=== PATIENT | female | born 1980 | race Hispanic/Latino ===

== ENCOUNTER 2021-07-09 06:57 | Emergency (ER) | payer SELFPAY ==
[~2021-07-09] VITALS: Ht 154.9 cm; Wt 88.0 kg
[2021-07-09 07:12] VITALS: BP 136/86
[2021-07-09] MEDS ORDERED: HYDR25CA PO (07:39)
[2021-07-09] MEDS ORDERED: LORAZEPAM 1 MG TABLET PO ONE (08:00)
== END 2021-07-09 08:01 | disposition home or self-care (01) ==
LOC: EDH 06:57
DX: F41.1 Generalized anxiety disorder (principal); Z63.8 Other specified problems related to primary support group
CPT/HCPCS: 93005